=== PATIENT | female | born 1925 | race Two or more races ===

== ENCOUNTER 2016-11-12 16:13 | Emergency (ER) | payer OTHER ==
[~2016-11-12] VITALS: Ht 154.9 cm; Wt 50.9 kg
[~2016-11-12 16:13] MED LIST: AZIT1PAC12 PO; CALC-649 PO; CENTSILV PO; D-ME473S2 PO; GINK60CA2 PO; LOSA25TA2 PO; PANT40TA4 PO; SIMVASTAT PO; [UNRECOGNIZED DRUG - CODE] PO
[2016-11-12 16:17] VITALS: Ht 154.9 cm; Wt 50.9 kg
[2016-11-12] MEDS ORDERED: PRAV10TA43 PO (16:47)
[2016-11-12] MEDS ORDERED: LOSA25TA5 PO (16:47)
[2016-11-12] MEDS ORDERED: ASC500 PO (16:48)
[2016-11-12] MEDS ORDERED: GLIM2TAB PO (16:48)
[2016-11-12] MEDS ORDERED: GLUC-182 PO (16:51)
[2016-11-12] MEDS ORDERED: FLUO10TA PO (16:54)
[2016-11-12] MEDS ORDERED: traMADol 50 MG TAB PO ONE (17:00)
--- NOTE | 2016-11-12 17:15 | RADRPT ---
PROCEDURE: XR Right Foot. CLINICAL INDICATION: Trauma due to a fall. Right foot pain. TECHNIQUE: Three views. Frontal, lateral, and oblique. COMPARISON: None. FINDINGS: There are acute transverse fractures through the proximal shafts of the second, third, and fourth me tatarsals. There is also a vertical component of the fourth metatarsal fracture indicating it is co mminuted. There is no other fracture and there is no dislocation. The soft tissues are normal. Articular surfaces are intact. There is no lytic or blastic lesion. There is no radiopaque foreign body. IMPRESSION: 1. Acute fractures of the proximal shafts of the second, third, and fourth metatarsals. 2. Otherwise unremarkable images of the right foot. RPTAT: QQ .Oliver Dominguez MD, Date Time Electronically viewed and signed by .Oliver Dominguez MD, on 11/12/2016 17:15 .R/
[2016-11-12] MEDS ORDERED: TRAM50TA2 PO (17:49)
--- NOTE | 2016-11-12 17:54 | ERD ---
ER Documentation Chief Complaint Date/Time DATE: 11/12/16 TIME: 17:52 Chief Complaint TRIPPED AND FELL, RIGHT FOOT PAIN, NO K.O, NO DIZZINESS HPI This is a 89-year-old female who is going up some steps when she stubbed her toe on the step that she was stepping up and she hyperflexed her right foot. She is complaining of pain at the forefoot along the metatarsals 345 there is no swelling no erythema no laceration. Did not fall and hit her head and have any loss of consciousness denies any headache neck pain chest pain back pain other extremity pain. The pain described as sharp worse with weightbearing and movement better with rest no pain in the knee or proximal fibula or ankle ROS All systems reviewed and are negative except as per history of present illness. Medications Home Meds Active Scripts Tramadol HCl (Tramadol HCl) 50 Mg Tablet, 50 MG PO Q6, #20 TAB Prov:GABI DANIELS DO 11/12/16 Reported Medications Fluoxetine Hcl* (Fluoxetine Hcl*) 10 Mg Tablet, 10 MG PO DAILY, TAB 11/12/16 Glucosamine/D3/Boswellia Ely (Glucosamine Daily Complex Tab) 1 Each Tablet, 1 EACH PO DAILY, TAB 11/12/16 Ascorbic Acid (Vitamin C) 500 Mg Tab, 500 MG PO DAILY, TAB 11/12/16 Glimepiride* (Glimepiride*) 2 Mg Tablet, 2 MG PO WITH BREAKFAST, TAB 11/12/16 Losartan Potassium* (Losartan Potassium*) 25 Mg Tablet, 25 MG PO DAILY, TAB 11/12/16 Pravastatin Sodium* (Pravastatin Sodium*) 10 Mg Tablet, 10 MG PO HS, TAB 11/12/16 Ginkgo Biloba (Ginkgo Biloba Plus) 60 Mg Capsule, PO DAILY 06/13/12 Discontinued Reported Medications Multivitamins/Minerals (Centrum Silver) 1 Tab Tab, PO DAILY 06/13/12 Calcium Carbonate (Calcium) 1 Tab Tablet, PO DAILY 06/13/12 Pantoprazole* (Pantoprazole*) 40 Mg Tablet.dr, PO DAILY 06/13/12 Gluc Hcl/Csana/Gly-Am-Gly,Mx/C (Cosamin Ds Capsule) 1 Cap Capsule, PO DAILY 06/13/12 [Simvastat] No Conflict Check, PO DAILY 06/13/12 Losartan Potassium* (Cozaar*) 25 Mg Tablet, PO DAILY 06/13/12 Azithromycin* (Azithromycin*) 1 G/Pkt Packet, PO DAILY 06/13/12 Dextromethorphan Hb-Promethazine Hcl* (Promethazine DM* Syrup) 473 Ml Syrup, PO Q6 06/13/12 Allergies Allergies: Coded Allergies: Penicillins (Verified Allergy, Mild, 11/12/16) celecoxib (Verified Allergy, Mild, 11/12/16) clarithromycin (Verified Allergy, Mild, 11/12/16) PMhx/Soc History of Surgery: Yes (Appendectomy, Uterine polyps removed) Anesthesia Reaction: No Hx Neurological Disorder: No Hx Respiratory Disorders: Yes (PNA) Hx Cardiac Disorders: Yes (HTN) Hx Psychiatric Problems: No 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 No meningismus, no lymphadenopathy.] Resp: [Clear to auscultation bilaterally, no wheezing, rhonchi, rales] Cardio: [Regular rate and rhythm, no murmurs, S1 S2 present] Abd: [Soft, non tender x 4, non distended. Normal bowel sounds, no guarding or rebound, no pulsitile abdominal masses or bruits] Skin: [No petechiae or rashes, no ecchymosis , no maculopapular rash] Back: [No midline or flank tenderness] Ext: [No cyanosis, or edema, FROM x 4, normal inspection, tender to palpation along the right forefoot metatarsals 234 neurovascularly intact x 4] Neur: [Awake and alert, STR 5/5 x 4, sensation intact x 4, no focal findings, cerebellum intact] Psych: [Normal Mood and Affect] Results 24 hrs Current Medications Medications (Trade) Dose Ordered Sig/[place] Route PRN Reason Start Time Stop Time Status Last Admin Dose Admin Tramadol HCl (Ultram) 50 mg ONCE ONCE PO 11/12/16 17:00 11/12/16 17:01 DC 11/12/16 16:42 Procedures/MDM PROCEDURE: XR Right Foot. CLINICAL INDICATION: Trauma due to a fall. Right foot pain. TECHNIQUE: Three views. Frontal, lateral, and oblique. COMPARISON: None. FINDINGS: There are acute transverse fractures through the proximal shafts of the second, third, and fourth metatarsals. There is also a vertical component of the fourth metatarsal fracture indicating it is comminuted. There is no other fracture and there is no dislocation. The soft tissues are normal. Articular surfaces are intact. There is no lytic or blastic lesion. There is no radiopaque foreign body. IMPRESSION: 1. Acute fractures of the proximal shafts of the second, third, and fourth metatarsals. 2. Otherwise unremarkable images of the right foot. RPTAT: QQ .Oliver Dominguez MD, Date Time Electronically viewed and signed by .Oliver Dominguez MD, on 11/12/2016 17:15 .R/ CC: GABI DANIELS DO Refer to Dr. Steen of orthopedics. We will give her crutches and a walking boot Departure Diagnosis: Primary Impression: Metatarsal fracture Encounter type: initial encounter Metatarsal bone: fourth Fracture type: closed Fracture alignment: nondisplaced Laterality: right Qualified Code: S92.344A - Closed nondisplaced fracture of fourth metatarsal bone of right foot , initial encounter Condition: Stable Patient Instructions: Fracture, Foot (Child) Referrals: TRAVIS STEEN MD, APOSTOLOS A. DO Nov 12, 2016 17:54
[2016-11-12 18:38] VITALS: BP 158/68; PULSE 95; RESP 20; TEMP 98
== END 2016-11-12 19:05 | disposition home or self-care (01) ==
LOC: E/R 16:13
DX: S92.344A Nondisplaced fracture of fourth metatarsal bone, right foot, initial encounter for closed fracture (principal); I10 Essential (primary) hypertension; W01.0XXA Fall on same level from slipping, tripping and stumbling without subsequent striking against object, initial encounter; Y92.9 Unspecified place or not applicable; Z79.84 Long term (current) use of oral hypoglycemic drugs
CPT/HCPCS: 73630